=== PATIENT | male | born 1975 | race Caucasian/White ===

== ENCOUNTER 2019-02-22 08:31 | Day surgery (SDC) | payer SELFPAY ==
[2019-02-22] MEDS ORDERED: Lactated Ringers 1,000 ML IV ONE (09:22)
[2019-02-22] MEDS ORDERED: CEFAZOLIN 2 GM-D5W BAG** 2 GM/50 ML ML IV ONE (09:22)
[2019-02-22] MEDS ORDERED: XYLOCAINE 1% HCL 20 ML MDV ONE (09:46)
[2019-02-22] MEDS ORDERED: Sodium Chloride 0.9% 1000 ML 1,000 ML ONE (09:46)
[2019-02-22] MEDS ORDERED: XYLOCAINE 1%/Epi 1:100000 MDV 20 ML ONE (10:34)
[2019-02-22] MEDS ORDERED: MINERAL OIL LIGHT 10 ML FOR SURGERY ONE (11:44)
[2019-02-22 13:20] VITALS: O2SAT 98
[2019-02-22 13:30] VITALS: BP 112/80; PULSE 64
--- NOTE | 2019-02-22 15:38 | OP ---
SURGERY DATE/TIME: 02/22/2019 1043 PREOPERATIVE DIAGNOSES: 1) Mass right posterior neck which appears to be compatible with epidermal cyst. 2) Papule mid posterior chest, etiology? 3) Subcutaneous mass dorsal aspect distal phalanx left middle finger which could be either epidermal cyst or foreign body granuloma. POSTOPERATIVE DIAGNOSES: 1) Epidermal cyst right posterior neck. 2) Papule mid posterior chest etiology? 3) Mass dorsal aspect distal phalanx left middle finger, etiology? See final path report. PROCEDURE: 1) Excision of epidermal cyst right posterior neck. 2) Excision biopsy of papule mid posterior chest. 3) Excision of a mass dorsal aspect distal phalanx left middle finger. SURGEON: Dony Russell M.D. ANESTHESIA: Local. 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 Dylan Ríos because of a mass on the patient's right posterior neck which the patient states has been present for 20 years now which has increased in size. There is no itching, bleeding or pain but at times there is foul-smelling coming out from the mass. The patient also states he has got a lesion on his back of one year duration which has not healed. It comes and goes with apparently no change in size or color. He states that when he was 22 years of age that he punctured the dorsal aspect distal phalanx of his left middle finger with a possible piece of screw which has increased in size. There is no itching, bleeding or pain. Examination on his visit of 01/24/2019 revealed that the patient has subcutaneous tissue mass located right posterior neck at its base measuring 3.5 x 2.8 cm, which is movable and not attached to underlying structures and it is attached to skin, it is round and smooth. The patient has a orantes to reddish papule located in the mid posterior chest just to the left of the midline measuring 4 x 3 mm attached to skin but not to underlying structures. The patient has subcutaneous tissue mass dorsal aspect distal phalanx left middle finger on the radial side measuring 1.2 cm in diameter attached to skin and it is movable and slightly tender on palpation. The patient has full range of motion with intact sensation in his left hand. Treatment plan was then discussed with the patient with regards to mass posterior neck and the patient informed that these appear to be compatible with epidermal cyst. In order to know the etiology of this mass imaging study including ultrasound, CT scan or MRI could be performed. However, the patient states that he would just like to go ahead with excision of the mass. In regards to the reddish papule in the mid posterior chest, I do not know the etiology of this papule. Excision biopsy was then discussed with him and different types of biopsy were discussed with him which includes also excision. However, the patient prefers to undergo excision biopsy with sutures. In regards to the mass dorsal aspect middle phalanx left middle finger with history of puncture wound in the area where the mass is located, the patient is informed that this could be either epidermal cyst or foreign body granuloma. Imaging study including MRI was discussed with him and he stated that he did not want to pursue this. The patient however is advised obtaining x-ray of his left hand and left middle finger to at least assess the bony anatomy of the left middle finger and see if there is any radiopaque foreign body. The place of surgery was discussed with him which will be in a hospital. The risks involved in the procedure which includes infection, bleeding, poor scar, possible recurrence, injury to normal structures and further surgery was discussed with him. The patient was subsequently seen in my office on 02/12/2019. The patient denies any change to the above listed mass and papule. Patient was also noted at this point to have nail grooving on radial side of the nail plate on his left middle finger and he was informed that it mostly secondary to the pressure from the mass on his left middle finger. The results of the x-ray obtained of the left hand at [facility] on 01/24/2019 was discussed with the patient and I informed him that I reviewed the x-ray of the patient's left hand with Dr. Bell, Radiologist at [facility] and there is no bone abnormality noted including the distal interphalangeal joint left middle finger. I also informed that I do not see any radiopaque foreign body where the mass is located in the left middle finger. During his office visit the patient stated that he would like to go ahead with excision of the mass right posterior neck and mass dorsal aspect distal phalanx left middle finger. He also would like to proceed with excision biopsy of the papule mid posterior chest. The patient's surgery was discussed with him and he agreed to have surgery performed at [facility] as outpatient under local anesthetic. The patient signed his informed consent for the procedure which includes the risks and complications of the procedure including infection, bleeding, poor scar, possibility of recurrence, injury to normal structures, need for further surgery. The patient's preoperative and postoperative care was then discussed with him. THE PATIENT STATES THAT HE IS NOT ALLERGIC TO ANY MEDICATIONS. The patient is informed that he will be given preoperative antibiotics because of the surgery on his left middle finger. The patient is informed that the mass dorsal aspect distal phalanx left middle finger could also be mucous cyst and if there is a stalk that is in between extensor tendon and the collateral ligament that this stalk will be excised down to the distal interphalangeal joint and search for any arthritics will also be performed. The patient was also informed that the nail plate groove on radial side of the nail plate may or may not improve with surgery and he states that he is not bothered with this. The patient's preoperative and postoperative care were then discussed with him. DESCRIPTION OF PROCEDURE AND FINDINGS: While the patient was in the outpatient department, the patient states that there has been no change with regards to the mass in right posterior neck and in the left middle finger and also the papule in his mid-posterior chest. Skin marking was made for the excision of the mass in the right posterior neck which was an oblique fusiform skin marking on top of the mass and for the papule mid posterior chest this was also marked for excision in a fusiform manner with a 2 mm margin. For the left middle finger, the patient is informed that if the mass is adherent to the skin that there could be difficulty in closure of the area of excision, that a rotation flap or skin graft may need to be performed and he states that he understands. He was also informed that with a flap or skin graft that there could be skin graft or flap loss and states that he understands. After the skin marking was made then the patient was then brought in the operating room, placed in a prone position and then the patient was also given Kefzol 2 gm IV piggyback. The area of excision in the right posterior neck and mid-posterior chest were then prepped with Chloraprep and then sterile drapes were then applied. Time out was then obtained at this point and confirming there is no issues found then the procedure was performed as scheduled. Local anesthesia using 1% Xylocaine with epinephrine was then injected at the proposed area of excision in right posterior neck and 4 cc of the solution was used and for the papule mid-posterior chest 1 cc of the solution was used. After anesthetic had taken effect then attention was then directed towards the excision of the mass in the right posterior neck. The incision was made as marked down to subcutaneous tissue and then the skin flaps were then elevated superiorly and inferiorly. The mass was then found it appears to be compatible with epidermal cyst. The epidermal cyst including its capsule was dissected and excised completely including the overlying skin, this was then sent to pathology for histopathological diagnosis. Complete hemostasis was then obtained using bipolar cautery and then under direct vision and palpation no other masses were found where the previous mass was located. The incision was then closed in layers, subcutaneous tissues closed with interrupted buried sutures of 4-0 Monocryl, epidermis and dermis was then closed using interrupted sutures of 4-0 Nylon final closure right posterior neck is 2 cm. The papule mid-posterior chest is then excised as marked down to subcutaneous tissue. The margins were then marked with sutures and the entire specimen sent to pathology for histopathologic diagnosis. Layered closure is then performed at this point. Dermis and subcutaneous tissues were closed using interrupted buried sutures of 4-0 Monocryl and the epidermis and dermis were closed using interrupted sutures of 4-0 Nylon. Final skin closure in the mid-posterior chest just left of the midline is 2 cm. Skin closure in both areas were further amended using Mastisol and Steri-Strips followed by two bulky dressing secured with Tegaderm. The patient is then placed in supine position at this point with the left arm abducted. The patient's left hand, wrist and forearm down to the elbow was then prepped with Chloraprep and draped in the usual sterile fashion. A metacarpal head block was then performed in the patient's left middle finger using 1% Xylocaine plain and total anesthetic used during the case is 4.5 cc. After the block had taken effect then a rubber glove tourniquet was then applied at proximal base proximal phalanx left middle finger in order to have a bloodless field. It should be mentioned that prior to prepping and draping, the incision for the excision of the mass dorsal aspect distal phalanx left middle finger was then marked with a marking pen including the proposed ulnar based rotation flap. The mass was then outlined and then incision for excision was marked with a 1 mm margin curvilinear incision and then extending proximally through the mid lateral line longitudinally and extending in a transverse fashion into the dorsal proximal interphalangeal joint crease. After this was performed then prepping and draping were performed including the metacarpal head block. After rub glove tourniquet was applied, then the distal incision was then made 1 cm below the marked location of the mass and going in a curvilinear fashion distally. The initial incision was also made proximally just proximal to the distal interphalangeal joint. The skin flap was then elevated carefully using the tenotomy scissors and then the mass was then found. It is noted to be on top of the nail bed and it is hard and yellowish in color and it is attached to the skin. The base of the mass is then slowly and carefully dissected until the entire mass is visible. The size of the mass measured 1 x 1 cm. Because the mass is adherent to skin it was decided to excise this mass with a 1 mm margin and it was then decided at this point to close the resulting defect with an ulnarly based rotation flap that was previously marked. The mass was then excised as described above and the margins were marked with sutures and then entire specimen was sent to pathology for histopathologic diagnosis. The rotation flap was then incised and elevated from mid lateral line to mid lateral line from the radial to ulnar and then the rubber glove tourniquet was then released at this point and total tourniquet time was 44 minutes. Hemostasis was then obtained with application of pressure and using the bipolar cautery. It should also be mentioned that after the mass was excised under direct vision and palpation no other mass was found where the previous mass was located including in the area of the nail bed and also in the area of the extensor tendon insertion. After complete hemostasis obtained then the dorsal rotation flap was then sutured to cover the defect using interrupted sutures of 5-0 Nylon. The size of the rotation flap measured 4 x 2 cm. After the flap had been rotated in place, it was noted that the defect had been adequately closed. Sterile dressing consisting of Bacitracin ointment and Xeroform followed by 2 inch Maxi were then applied on the patient's left middle finger followed by a volar aluminum splint starting from the proximal phalanx extending to the tip of the distal phalanx with the proximal and distal interphalangeal joints placed in full extension. After the dressing and splint were applied, then the procedure was then terminated. The patient was then taken to the outpatient department for discharge home. Above operative findings, plan for postoperative care were then discussed with him. The patient is also given a prescription for Keflex 500 mg t.i.d. beginning this p.m. He was also given a prescription for Tylenol #3 one to two tablets every four hours as needed not to exceed 18 in 24 hours. He was advised for less severe pain that he could use Tylenol 5 grains 1 to 2 tablets every four hours for pain. He was also advised to keep his dressing especially on the left middle finger dry and clean and to keep his left hand elevated. He was also advised not to use his left hand for any heavy physical activity for now. He is to see me back in my office on 02/26/2019, for follow up or sooner if he has any problems.
== END 2019-02-22 13:30 | disposition home or self-care (01) ==
LOC: SDC 08:31
PROVIDERS: ATTEND Surgery Plastic and Reconstructive Surgery
DX: L72.0 Epidermal cyst (principal); R23.8 Other skin changes; R22.32 Localized swelling, mass and lump, left upper limb
CPT/HCPCS: J0690; A9270-GY